=== PATIENT | male | born 1950 | race Caucasian/White ===

== ENCOUNTER 2022-08-20 09:46 | Outpatient (RCR) | payer MEDICARE, SELFPAY | END 2022-09-15 16:21 | disposition home or self-care (01) | LOC: PT 09:46 | DX: M24.569 Contracture, unspecified knee (principal); Z96.649 Presence of unspecified artificial hip joint; M24.559 Contracture, unspecified hip; M17.0 Bilateral primary osteoarthritis of knee | CPT/HCPCS: 97110; 97112; 97162 ==

== ENCOUNTER 2023-05-26 13:09 | Outpatient (OUT) | payer MEDICARE, SELFPAY | END 2023-05-26 13:10 | disposition home or self-care (01) | LOC: PST 13:10 | PROVIDERS: Visit Provider Surgery | DX: Z01.818 Encounter for other preprocedural examination (principal); R19.5 Other fecal abnormalities ==

== ENCOUNTER 2023-06-01 07:56 | Day surgery (SDC) | payer MEDICARE, SELFPAY ==
[2023-06-01 08:05] VITALS: BP 131/65; PULSE 78; TEMP 36.1; O2SAT 98; BMI 25.7
[2023-06-01] MEDS: LACTATED RINGER'S SOLUTION 1,000 ML 50 ML IV ×2 (08:35→10:49)
[2023-06-01 11:48] VITALS: BP 139/82; PULSE 54; TEMP 36.3; O2SAT 100
[2023-06-01 12:03] VITALS: BP 129/59; PULSE 58; O2SAT 100
[2023-06-01 12:30] VITALS: BP 140/88; PULSE 58; O2SAT 100
--- NOTE | 2023-06-01 16:06 | P.GSPRC_ITS ---
Date of procedure: 06/01/23 Indications for Procedure: diagnostic colonoscopy for +fit test, EGD for GERD Pre-op diagnosis: +fit test, symptomatic GERD Post-op diagnosis: other (prather colitis, cecal ulceration, multiple colonic polyps, small hiatal hernia) Procedure: Previous colonoscopy: never Procedures: 1. EGD with biopsy of pylorus for H. Pylori, 2. diagnostic colonoscopy with multiple biopsies and polypectomies (cold snare and hot) Esophagogastroduodenoscopy with biopsy The patient was taken to the endoscopy suite and under monitored conditions was given adequate anesthesia until the patient was sedated.? The endoscope was pass ed easily into the oropharynx and into the upper esophagus.? The esophagus was normal and the z-line was at 35cm.? The scope entered the stomach easily which distended well.? The scope was passed through the pylorus and the duodenal bulb and 1st portion of the duodenum were within normal limits.? No abnormalities identified.? The body of the stomach was carefully inspected and there were no abnormalities identified.???The scope was retroflexed and no there was evidence of a hiatal hernia.?There was no gastritis in the antrum of the stomach. Biopsies were taken in the antrum for H. Pylori testing.? The patient tolerated the procedure well and was then positioned for colonoscopy. Colonoscopy PROCEDURE: The patient's SPO2 remained above 90% throughout the procedure. The colonoscope was inserted per rectum and advanced under direct vision to the cecum with difficulty given patient's prather colitis and inflamed tissues.? The prep was fair? Findings: Terminal ileum os: normal Cecum/Ascending colon: multiple areas of cecal non bleeding but friable tissues consistent with ulcerations- cold snare biopsies obtained, cecal polyp cold snare biopsy at approx 105cm, hot snare polypectomy at 100cm Transverse colon: transverse colon cold snare biopsy of polyp at 75cm Descending/Sigmoid colon: sigmoid colon hot snare polypectomy at 30cm, non bleeding but friable tissues noted Rectum/Anus: examined in normal and retroflexed positions and was noted to have a low rectal polyp- removed via hot snare polypectomy at 5cm Withdrawal Time was (minutes): 30 The colon was decompressed and the scope was removed.? The patient tolerated the procedure well. Recommendations/Plan: 1.? Lifestyle and dietary modifications as discussed 2.? F/U Biopsies 3.? F/U in office. Will need repeat c-scope in 3-6 months. Penidng pathology will discuss need for further work up and management. 4.? Discussed with the family Findings: prather colitis, cecal ulceration biopsy at approx 110cm multiple polyps as follows: cecal polyp cold snare biopsy at approx 105cm, hot snare polypectomy at 100cm, transverse colon cold snare biopsy of polyp at 75cm, sigmoid colon hot snare polypectomy at 30cm, low rectal hot snare polypectomy at 5cm Anesthesia: [facility] [place] Surgeon: Brandon Ragland Procedure Summary: 1. EGD with biopsy of pylorus for H. Pylori, 2. diagnostic colonoscopy with multiple biopsies and polypectomies (cold snare and hot) Estimated blood loss (mL): 5 Specimens: see above, sent for path Complications: No Pathology: other (multiple polyps and biopsies as above ) Condition: stable Disposition: PACU
== END 2023-06-01 12:30 | disposition home or self-care (01) ==
PROVIDERS: PCP Internal Medicine; Visit Provider Surgery
PROC: (CPT 43239; principal; 2023-06-01 09:05)
DX: R19.5 Other fecal abnormalities (principal); K21.9 Gastro-esophageal reflux disease without esophagitis; K44.9 Diaphragmatic hernia without obstruction or gangrene; K52.9 Noninfective gastroenteritis and colitis, unspecified; D12.3 Benign neoplasm of transverse colon; D12.0 Benign neoplasm of cecum; D12.5 Benign neoplasm of sigmoid colon; K62.1 Rectal polyp; Z79.899 Other long term (current) drug therapy; E78.5 Hyperlipidemia, unspecified; I10 Essential (primary) hypertension; Z96.653 Presence of artificial knee joint, bilateral; Z87.891 Personal history of nicotine dependence
CPT/HCPCS: 43239; 45380; 45385; 88305; 88341; 88342; 99999; J2704